=== PATIENT | female | born 1950 | race Caucasian/White ===

== ENCOUNTER 2017-10-14 09:38 | Emergency (ER) | payer OTHER ==
[~2017-10-14] VITALS: Ht 160 cm; Wt 78.0 kg
[2017-10-14 09:40] VITALS: BP 156/84
[2017-10-14] MEDS: KETOROLAC 60 MG/2 ML VIAL IM ONE (10:02)
[2017-10-14 10:25] VITALS: BP 167/85
== END 2017-10-14 10:25 | disposition home or self-care (01) ==
LOC: MED 09:38
DX: R07.89 Other chest pain (principal)
CPT/HCPCS: 96372; 99283; J1885

== ENCOUNTER 2017-10-24 17:58 | Emergency (ER) | payer OTHER ==
[~2017-10-24] VITALS: Ht 160 cm; Wt 81.6 kg
[2017-10-24 18:00] VITALS: BP 173/77
--- NOTE | 2017-10-24 18:10 | NUR ---
PATIENT PRESENTS TO ED WITH EPIGASTRIC PAIN . PT STATES SHE WAS HERE LAST WEEK WITH BACK PAIN BUT NOW SHE HAS EPIGASTRIC PAIN THAT RADIATES UP TOWARDS THROAT. DENIES N/V/D; SKIN IS PINK/WARM/DRY; AAOX4 WITH EVEN AND STEADY GAIT; LUNGS CLEAR BL; HR EVEN AND REGULAR; PT DENIES ANY FEVER, CP, SOB, OR COUGH AT THIS TIME; PATIENT STATES PAIN OF 7/10 AT THIS TIME; VSS; PATIENT POSITIONED FOR COMFORT; HOB ELEVATED; BEDRAILS UP X1; BED DOWN. ER MD MADE AWARE OF PT STATUS.
[2017-10-24] MEDS ORDERED: MORPHINE SULFATE 4 MG/ML SYR IVP ONE (18:15)
[2017-10-24] MEDS ORDERED: NACL 0.9% 1,000 ML IV ONE (18:15)
--- NOTE | 2017-10-24 18:23 | NUR ---
PT TAKEN OFF THE UNIT TO CT BY PILE DRIVER OPERATOR GAVINO
--- NOTE | 2017-10-24 18:36 | NUR ---
RETURNED FROM RADIOLOGY VIA
--- NOTE | 2017-10-24 19:05 | NUR ---
RE[facility]
--- NOTE | 2017-10-24 19:10 | NUR ---
DAUGHTER AT BEDSIDE
[2017-10-24 19:14] LABS: BASOPHILS # (AUTO) 0.1 K/uL (0.00-0.22); BASOPHILS % (AUTO) 0.7 % (0.0-2.0); EOSINOPHILS # (AUTO) 0.1 K/uL (0-0.4); EOSINOPHILS % (AUTO) 1.7 % (0.0-4.0); HEMATOCRIT 37.2 % (36-48); HEMOGLOBIN 12.3 g/dL (12.0-16.0); LYMPHOCYTES # (AUTO) 1.9 K/uL (2.5-16.5); MEAN CORPUSCULAR HEMOGLOBIN 32 pg (27-31); MEAN CORPUSCULAR HGB CONC 33 g/dL (33-37); MEAN CORPUSCULAR VOLUME 97.6 fL (80-94); MONOCYTES # (AUTO) 0.6 K/uL (0.8-1.0); MONOCYTES % (AUTO) 8.2 % (1.7-9.3); NEUTROPHILS # (AUTO) 4.9 K/uL (1.8-7.7); NEUTROPHILS % (AUTO) 64.4 % (42.2-75.2); PLATELET COUNT (AUTO) 216 K/uL (140-450); RED BLOOD CELL COUNT(AUTO) 3.81 MIL/uL (4.20-5.40); RED CELL DISTRIBUTION WIDTH 13.2 % (11.6-13.7); WHITE BLOOD COUNT (AUTO) 7.6 K/uL (4.8-10.8)
[2017-10-24 19:30] LABS: ANION GAP 10.9 (8-16); CARBON DIOXIDE 27.7 mmol/L (21-32); CREATININE 0.7 mg/dL (0.6-1.3); POTASSIUM 3.6 mmol/L (3.5-5.1)
[2017-10-24 19:36] LABS: ALBUMIN 3.2 g/dL (3.4-5.0); TOTAL BILIRUBIN 0.1 mg/dL (0.0-1.0)
--- NOTE | 2017-10-24 20:00 | NUR ---
FLUIDS RESTATRTED, IV PATENT, NO S/S OF INFILTRATION.
[2017-10-24 20:15] VITALS: BP 152/76
--- NOTE | 2017-10-24 20:15 | NUR ---
Patient discharged with v/s stable. Written and verbal after care instructions given and explained. Patient alert, oriented and verbalized understanding of instructions. Ambulatory with steady gait. All questions addressed prior to discharge. ID band removed. Patient advised to follow up with PMD. Rx of MYLANTA [id number] given. Patient educated on indication of medication including possible reaction and side effects. Opportunity to ask questions provided and answered.
== END 2017-10-24 20:15 | disposition home or self-care (01) ==
LOC: MED 17:58
DX: R07.89 Other chest pain (principal); R10.13 Epigastric pain
CPT/HCPCS: 36415; 71045; 74176; 80053; 83690; 84484; 85025; 96361; 96374; 99285; J2270; J7030; 93005; 99284

== ENCOUNTER 2018-06-11 17:15 | Inpatient (IN) | payer OTHER ==
[~2018-06-11] VITALS: Ht 160 cm; Wt 77.6 kg
[2018-06-11 17:33] VITALS: BP 137/89
--- NOTE | 2018-06-11 17:35 | NUR ---
67 Y/O F ACCOMPANIED BY DAUGHTER W/C/O CONSTANT LEFT SIDED BURNING CHEST WALL PAIN RADIATING UNDER LEFT BREAST AND OVER LEFT SCAPULA----NAUSEA AND HEADACHE ASSOCIATED X 1500HRS TODAY. PT STATES SEEN 10/14/2017 AND 10/24/2017 SAME SYMPTOMS. DENIES INJURY, NO RASH NOTED--DENIES ANY AGGRAVATING OR RELIEVING FACTORS. SKIN IS INTACT, PINK/WARM/DRY; AAOX4, PERRL, WITH EVEN AND STEADY GAIT; LUNGS CLEAR BL, BREATHING UNLABORED; HR EVEN AND REGULAR, BL PERIPHERAL PULSES PRESENT; BS ACTIVE X4, NO TENDERNESS TO PALPATION, NO HEPATOSPLENOMEGALLY PALPATED, RESONANT TO PERCUSSION; PT DENIES ANY FEVER, CP, SOB, OR COUGH AT THIS TIME; PT STATES 8/10 PAIN AT THIS TIME; VSS; PATIENT POSITIONED FOR COMFORT; HOB ELEVATED; BEDRAILS UP X2; BED DOWN. HX----HTN, OSTEOPOROSIS RX----?
[2018-06-11] MEDS ORDERED: ASPIRIN 81 MG TAB.CHEW PO ONE (17:45)
[2018-06-11] MEDS ORDERED: KETOROLAC 30 MG/ML VIAL IVP ONE (17:45)
--- NOTE | 2018-06-11 18:00 | NUR ---
PT RESTING IN BED WITH DAUGHTER AT THE BEDSIDE. NO S/S OF DISTRESS NOTED.
[2018-06-11 18:06] LABS: BASOPHILS # (AUTO) 0.1 K/uL (0.00-0.22); BASOPHILS % (AUTO) 0.8 % (0.0-2.0); EOSINOPHILS # (AUTO) 0.2 K/uL (0-0.4); HEMATOCRIT 38.3 % (36-48); HEMOGLOBIN 12.5 g/dL (12.0-16.0); LYMPHOCYTES # (AUTO) 2.2 K/uL (2.5-16.5); MEAN CORPUSCULAR HEMOGLOBIN 32 pg (27-31); MEAN CORPUSCULAR HGB CONC 33 g/dL (33-37); MEAN CORPUSCULAR VOLUME 97.3 fL (80-94); MONOCYTES # (AUTO) 0.7 K/uL (0.8-1.0); MONOCYTES % (AUTO) 8.4 % (1.7-9.3); NEUTROPHILS % (AUTO) 61.8 % (42.2-75.2); PLATELET COUNT (AUTO) 231 K/uL (140-450); RED BLOOD CELL COUNT(AUTO) 3.93 MIL/uL (4.20-5.40)
[2018-06-11 18:49] LABS: ALBUMIN 3.7 g/dL (3.4-5.0); ANION GAP 10.7 (8-16); CARBON DIOXIDE 29.6 mmol/L (21-32); CREATININE 0.8 mg/dL (0.6-1.3); POTASSIUM 3.3 mmol/L (3.5-5.1); TOTAL BILIRUBIN 0.2 mg/dL (0.0-1.0)
[2018-06-11 18:50] LABS: PROTHROMBIN TIME 9.3 secs (10.8-13.4)
[2018-06-11] MEDS ORDERED: DICYCLOMINE HCL LIQUID 20 MG, ALUMINUM HYD/MAG/SIMETHICONE 30 ML, LIDOCAINE VISCOUS 2% ... PO ONE ×3 (19:45)
[2018-06-11] MEDS ORDERED: ACETAMINOPHEN 325 MG TAB PO PRN (20:20)
[2018-06-11] MEDS ORDERED: ONDANSETRON 4 MG/2 ML VIAL IVP PRN (20:20)
[2018-06-11] MEDS ORDERED: HYDROcodone/APAP 7.5/325 MG 1 TAB PO PRN (20:20)
[2018-06-11] MEDS ORDERED: POTASSIUM CHLORIDE 10 MEQ TABER PO ONE ×2 (20:20→22:57)
[2018-06-11] MEDS ORDERED: NITROGLYCERIN 0.4 MG TAB SL PRN (20:20)
--- NOTE | 2018-06-11 20:30 | NUR ---
PT AMBULATED TO BATHROOM AT THIS TIME. NO DISTRESS NOTED. PT STATES 0/10 PAIN.
--- NOTE | 2018-06-11 21:05 | NUR ---
RECEIVED FROM [place] MAORI BRENDA MENDOSA AWAKE AND ALERT. ABLE TO VERBALIZE IN [place] AND [place] ACCOMPANIED BY DAUGHTER. NO SOB. DENIES ANY CHEST PAIN AT THIS TIME. MEDICATED IN ER FOR HER CHEST PAIN DX. PT. IVF SITE TO [facility] #18. CALL LIGHT WITH IN REACH AND CARE PLANS FOR THE NIGHT DISCUSSED WITH THEM. SKIN INTACT. ACCOMPANIED BY DAUGHTER NEGRITO DOOLEY WHO SPEAKS [place].
--- NOTE | 2018-06-11 21:10 | NUR ---
Patient will be admitted to care of [facility]. Admited to TELE. Will go to room 120B. Belongings list completed. Report to AMANDA READ.
--- NOTE | 2018-06-11 21:30 | NUR ---
PER PT. SHE CAN WALK WELL WITHOUT ASSIST. INDEPENDENT. TURNS SELF WELL. ABLE TO EXPRESS SIMPLE NEEDS IN [place].
[2018-06-11 21:48] LABS: APPEARANCE,URINE CLEAR (CLEAR); BILIRUBIN,URINE NEGATIVE (NEGATIVE); BLOOD, URINE 1+ (NEGATIVE); COLOR,URINE YELLOW (YELLOW); LEUKOCYTE ESTERASE ,URINE NEGATIVE (NEGATIVE); NITRITE, URINE NEGATIVE (NEGATIVE); UGLUCOSE NEGATIVE (NEGATIVE)
[2018-06-11 21:51] LABS: RBC,URINE 3-10 (FEW) /HPF (0-5); WBC,URINE 0-5 (RARE) /HPF (0-5)
[2018-06-11] MEDS ORDERED: ASPI81CT89 PO (22:17)
[2018-06-11] MEDS ORDERED: ORE25 PO (22:17)
[2018-06-11] MEDS ORDERED: CALC-53 PO (22:17)
[2018-06-11] MEDS ORDERED: NAPR-54 PO (22:17)
[2018-06-11 22:25] LABS: FREE T4 (FREE THYROXINE) 1.1 ng/dL (0.76-1.46); PHOSPHORUS 3.3 mg/dL (2.5-4.9); THYROID STIMULATING HORMONE 2.37 uIU/mL (0.34-3.74)
[2018-06-11 22:37] VITALS: BP 133/85
[2018-06-11] MEDS: DOCUSATE SODIUM 100 MG GELCAP PO SCH (22:51)
[2018-06-11] MEDS: ATORVASTATIN 20 MG TAB PO SCH (22:52)
[2018-06-11] MEDS: ZOLPIDEM 5 MG TAB PO PRN (22:53)
[2018-06-11] MEDS: METOPROLOL 25 MG TAB PO SCH (22:53)
[2018-06-11] MEDS: NACL 0.9% 1,000 ML IV SCH (23:00)
--- NOTE | 2018-06-11 23:23 | NUR ---
ALL P.O. MEDICATIONS ORDERED TOLERATED WELL. NO COMPLAINTS DONE. SWALLOWED HER PILLS WELL. PT. WENT RESTROOM TO URINATE INDEPENDENTLY. FAMILY MEMBERS LEFT FOR HOME. RE-ORIENTED TO CALL LIGHT USE AND FOR ANY HELP SHE NEEDS. TELEMETRY MONITORING.
--- NOTE | 2018-06-12 01:12 | NUR ---
SLEEPING AT THIS TIE. CALL LIGHT WITH IN REACH. IVF NS INFUSING WELL AT 70 ML/H. IVF SITE PATENT AND NO INFILTRATION. TELEMETRY MONITORING.
[2018-06-12 01:24] VITALS: BP 143/65
--- NOTE | 2018-06-12 01:25 | NUR ---
PT. AWAKE AND WENT TO RESTROOM TO URINATE. INDEPENDENT. DENIES DOLOR AT THIS TIME. ENCOURAGED TO CALL FOR ANY HELP SHE MAY NEED OR IF IN PAIN.
--- NOTE | 2018-06-12 03:00 | NUR ---
SLEEPING WELL. NO SOB. NO RESTLESSNESS. TELEMETRY MONITORING. CALL LIGHT WITH IN REACH.
[2018-06-12 04:56] VITALS: BP 109/60
--- NOTE | 2018-06-12 06:30 | NUR ---
CELINA OF CT SCAN IN HERE TO TAKE PT. TO THEIR UNIT FOR CT SCAN ABDOMEN WITH OUT CONTRAST. AWAKE AND ALERT.
--- NOTE | 2018-06-12 07:29 | NUR ---
BACK FROM CT SCAN ABD. AWAKE AND ALERT. ENDORSED TO THE NEXT RN FOR CONTINUITY OF CARE.
--- NOTE | 2018-06-12 07:30 | NUR ---
REPORT RECEIVED FROM NIGHT NURSE. PT A/O ABLE TO COMMUNICATE NEEDS. DENIES CHEST PAIN, SOB OR DISCOMFORT. NO S/S OF ACUTE DISTRESS NOTED AT THIS TIME. CALL LIGHT, PERSONAL ITEMS WITHIN REACH, SAFETY MEASURES IN PLACE, WILL CONTINUE TO MONITOR.
[2018-06-12 08:00] VITALS: BP 147/55
[2018-06-12 08:16] LABS: BASOPHILS # (AUTO) 0.1 K/uL (0.00-0.22); BASOPHILS % (AUTO) 0.9 % (0.0-2.0); EOSINOPHILS # (AUTO) 0.2 K/uL (0-0.4); EOSINOPHILS % (AUTO) 2.2 % (0.0-4.0); HEMOGLOBIN 12.8 g/dL (12.0-16.0); LYMPHOCYTES # (AUTO) 2.2 K/uL (2.5-16.5); LYMPHOCYTES % (AUTO) 31.5 % (20.5-51.1); MEAN CORPUSCULAR HEMOGLOBIN 32 pg (27-31); MEAN CORPUSCULAR HGB CONC 33 g/dL (33-37); MEAN CORPUSCULAR VOLUME 97.2 fL (80-94); MONOCYTES # (AUTO) 0.6 K/uL (0.8-1.0); MONOCYTES % (AUTO) 8.6 % (1.7-9.3); NEUTROPHILS # (AUTO) 3.9 K/uL (1.8-7.7); NEUTROPHILS % (AUTO) 56.8 % (42.2-75.2); PLATELET COUNT (AUTO) 239 K/uL (140-450); RED BLOOD CELL COUNT(AUTO) 4.01 MIL/uL (4.20-5.40); RED CELL DISTRIBUTION WIDTH 13.4 % (11.6-13.7); WHITE BLOOD COUNT (AUTO) 6.9 K/uL (4.8-10.8)
--- NOTE | 2018-06-12 08:44 | NUR ---
PATIENT HAS BEEN SCREENED AND CATEGORIZED MODERATE NUTRITION RISK. PATIENT WILL BE SEEN WITHIN 3-5 DAYS OF ADMISSION. 06/14/18 06/16/[address]
[2018-06-12 09:07] LABS: ANION GAP 13.7 (8-16); CARBON DIOXIDE 26.5 mmol/L (21-32); CREATININE 0.8 mg/dL (0.6-1.3); POTASSIUM 4.2 mmol/L (3.5-5.1)
[2018-06-12] MEDS: DOCUSATE SODIUM 100 MG GELCAP PO SCH ×2 (09:08→21:22)
[2018-06-12] MEDS: ASPIRIN 81 MG TAB.CHEW PO SCH (09:08)
[2018-06-12] MEDS: METOPROLOL 25 MG TAB PO SCH ×2 (09:08→21:22)
[2018-06-12] MEDS: LISINOPRIL 5 MG TAB PO SCH (09:08)
[2018-06-12 09:28] LABS: MAGNESIUM 2.1 mg/dL (1.8-2.4); PHOSPHORUS 2.9 mg/dL (2.5-4.9)
[2018-06-12 09:47] LABS: CHOL/HDL RATIO 3.6 (1-4.5)
--- NOTE | 2018-06-12 10:30 | NUR ---
PT AWAKE A/O ABLE TO COMMUNICATE NEEDS. DENIES CHEST PAIN, SOB OR DISCOMFORT. AMBULATORY AD BERYL. NO S/S OF ACUTE DISTRESS NOTED AT THIS TIME. CALL LIGHT, PERSONAL ITEMS WITHIN REACH, SAFETY MEASURES IN PLACE, WILL CONTINUE TO MONITOR.
[2018-06-12 12:00] VITALS: BP 138/64
[2018-06-12] MEDS: NACL 0.9% 1,000 ML IV SCH (12:56)
--- NOTE | 2018-06-12 13:29 | NUR ---
PT AWAKE A/O ABLE TO COMMUNICATE NEEDS. FAMILY AT BEDSIDE. PT DENIES CHEST PAIN, SOB OR DISCOMFORT. OOB AD BERYL. NO S/S OF ACUTE DISTRESS NOTED AT THIS TIME. CALL LIGHT, PERSONAL ITEMS WITHIN REACH, SAFETY MEASURES IN PLACE, WILL CONTINUE TO MONITOR.
[2018-06-12 16:00] VITALS: BP 112/50
--- NOTE | 2018-06-12 18:34 | NUR ---
PT AWAKE A/O ABLE TO COMMUNICATE NEEDS. COMFORTABLE EATING DINNER. FAMILY AT BEDSIDE. PT DENIES CHEST PAIN, SOB OR DISCOMFORT. NO S/S OF ACUTE DISTRESS NOTED AT THIS TIME. CALL LIGHT, PERSONAL ITEMS WITHIN REACH, SAFETY MEASURES IN PLACE, WILL CONTINUE TO MONITOR.
--- NOTE | 2018-06-12 19:22 | NUR ---
PT AWAKE A/O ABLE TO COMMUNICATE NEEDS. PT DENIES CHEST PAIN, SOB OR DISCOMFORT. NO S/S OF ACUTE DISTRESS NOTED AT THIS TIME. CALL LIGHT, PERSONAL ITEMS WITHIN REACH, SAFETY MEASURES IN PLACE. REPORT ENDORSED TO NURSE STEPHENS.
--- NOTE | 2018-06-12 19:24 | NUR ---
RECEIVED BEDSIDE REPORT FROM AM SHIFT NURSE. PT A/O ABLE TO COMMUNICATE NEEDS. DENIES CHEST PAIN, SOB OR DISCOMFORT. NO S/S OF ACUTE DISTRESS NOTED AT THIS TIME. CALL LIGHT, PERSONAL ITEMS WITHIN REACH, SAFETY MEASURES IN PLACE, WILL CONTINUE TO MONITOR.
[2018-06-12 20:00] VITALS: BP 112/50
--- NOTE | 2018-06-12 21:15 | NUR ---
PT ABLE TO TOLERATE ALL MEDS, NO COMPLAINTS OF CHEST PAIN.
[2018-06-12] MEDS: ATORVASTATIN 20 MG TAB PO SCH (21:22)
[2018-06-12] MEDS: ZOLPIDEM 5 MG TAB PO PRN (21:24)
--- NOTE | 2018-06-12 21:24 | NUR ---
PT C/O OF INABILITY OF SLEEP. AMBIEN GIVEN ORDERED.
[2018-06-13] VITALS: BP 120/60
[2018-06-13] MEDS: NACL 0.9% 1,000 ML IV SCH (03:32)
[2018-06-13 04:00] VITALS: BP 120/50
--- NOTE | 2018-06-13 04:18 | NUR ---
PT SLEEPING. PT IN STABLE CONDITION, NO COMPLAINTS OF PAIN AT THIS TIME. WILL CONTINUE TO MONITOR
--- NOTE | 2018-06-13 07:24 | NUR ---
PT STILL SLEEPING IN STABLE CONDITION. NO COMPLAINTS OF CHEST PAIN. WILL ENDORSE TO NEXT SHIFT
--- NOTE | 2018-06-13 07:30 | NUR ---
REPORT RECEIVED FROM NIGHT NURSE ANGELO. PT SLEEPING, EASILY AROUSABLE TO VERBAL STIMULI. A/O ABLE TO COMMUNICATE NEEDS. DENIES CHEST PAIN, SOB OR DISCOMFORT. NO S/S OF ACUTE DISTRESS NOTED AT THIS TIME. CALL LIGHT, PERSONAL ITEMS WITHIN REACH, SAFETY MEASURES IN PLACE, WILL CONTINUE TO MONITOR.
[2018-06-13 08:09] VITALS: BP 127/50
[2018-06-13] MEDS: ASPIRIN 81 MG TAB.CHEW PO SCH (09:34)
[2018-06-13] MEDS: DOCUSATE SODIUM 100 MG GELCAP PO SCH (09:34)
[2018-06-13] MEDS: LISINOPRIL 5 MG TAB PO SCH (09:35)
[2018-06-13] MEDS: METOPROLOL 25 MG TAB PO SCH (09:35)
--- NOTE | 2018-06-13 10:30 | NUR ---
PT A/O ABLE TO COMMUNICATE NEEDS. VISITOR AT BEDSIDE. PT DENIES CHEST PAIN, SOB OR DISCOMFORT. NO S/S OF ACUTE DISTRESS NOTED AT THIS TIME. CALL LIGHT, PERSONAL ITEMS WITHIN REACH, SAFETY MEASURES IN PLACE, WILL CONTINUE TO MONITOR.
[2018-06-13 12:00] VITALS: BP 138/48
[2018-06-13 12:55] VITALS: BP 138/48
[2018-06-13 12:56] LABS: BASOPHILS # (AUTO) 0.1 K/uL (0.00-0.22); BASOPHILS % (AUTO) 0.7 % (0.0-2.0); EOSINOPHILS # (AUTO) 0.1 K/uL (0-0.4); EOSINOPHILS % (AUTO) 1.6 % (0.0-4.0); HEMATOCRIT 38.4 % (36-48); HEMOGLOBIN 12.7 g/dL (12.0-16.0); LYMPHOCYTES # (AUTO) 2.3 K/uL (2.5-16.5); LYMPHOCYTES % (AUTO) 27.9 % (20.5-51.1); MEAN CORPUSCULAR HEMOGLOBIN 32 pg (27-31); MEAN CORPUSCULAR HGB CONC 33 g/dL (33-37); MONOCYTES # (AUTO) 0.7 K/uL (0.8-1.0); MONOCYTES % (AUTO) 8.7 % (1.7-9.3); NEUTROPHILS % (AUTO) 61.1 % (42.2-75.2); PLATELET COUNT (AUTO) 223 K/uL (140-450); RED BLOOD CELL COUNT(AUTO) 3.95 MIL/uL (4.20-5.40); RED CELL DISTRIBUTION WIDTH 13.2 % (11.6-13.7); WHITE BLOOD COUNT (AUTO) 8.2 K/uL (4.8-10.8)
[2018-06-13 13:10] LABS: MAGNESIUM 2.2 mg/dL (1.8-2.4)
[2018-06-13 13:11] LABS: ANION GAP 13.8 (8-16); CARBON DIOXIDE 25.1 mmol/L (21-32); CREATININE 0.6 mg/dL (0.6-1.3); POTASSIUM 3.9 mmol/L (3.5-5.1)
--- NOTE | 2018-06-13 13:57 | NUR ---
PT AWAKE ALERT ORIENTED AMBULATORY, ABLE TO COMMUNICATE NEEDS. PT DISCHARGED TO HOME VIA PERSONAL TRANSPORT WITH DAUGHTER. PT AND FAMILY PROVIDED DC INSTRUCTIONS AND EDUCATION, VERBALIZED UNDERSTANDING. IV ACCESS REMOVED, TOLERATED WELL. CATHETER INTACT, NO S/S INFILTRATION, BANDAGE APPLIED, NO ACTIVE BLEEDING NOTED. PT DISCHARGED W ALL BELONGINGS, ALL QUESTIONS ANSWERED.. DENIES CP, DISCOMFORT, N/V, SOB. SKIN INTACT. NO S/S OF ACUTE DISTRESS NOTED.
== END 2018-06-13 13:57 | disposition home or self-care (01) | DRG 206 ==
LOC: MED 17:15 → MTU 20:34
PROVIDERS: ADMIT General Practice; ATTEND General Practice
DX: M94.0 Chondrocostal junction syndrome [Tietze] (principal); E87.6 Hypokalemia; I10 Essential (primary) hypertension; M81.0 Age-related osteoporosis without current pathological fracture; E66.9 Obesity, unspecified; Z68.30 Body mass index [BMI] 30.0-30.9, adult; Z71.3 Dietary counseling and surveillance; Z79.82 Long term (current) use of aspirin; Z79.899 Other long term (current) drug therapy; Z87.891 Personal history of nicotine dependence
CPT/HCPCS: 36415; 71045; 80048; 80053; 81001; 82150; 83036; 83690; 83735; 83880; 84100; 84439; 84443; 84484; 85025; 85610; 85730; 87081; 93005; 96374; 99285; J1885; J7030; Q0092

== ENCOUNTER 2021-02-14 15:21 | Emergency (ER) | payer OTHER ==
[~2021-02-14] VITALS: Ht 162.6 cm; Wt 73.0 kg
[~2021-02-14 15:21] MED LIST: ASPI-1822 PO; CALC-53 PO; HYDR-4004 PO; NAPR-54 PO
[2021-02-14 15:42] VITALS: BP 187/80
--- NOTE | 2021-02-14 17:00 | NUR ---
70 YEAR OLD FEMALE COMPLAINS OF BILATERAL LEG SWELLING X 2 WEEKS. PT STATES SHE HAS KNEE PAIN AND THAT LEFT LEG HAS PAIN FROM HIP THROUHGOUT LEG. PT AOX4, BREATHING EVEN AND UNLABORED, SKIN WARM AND DRY. BED IN LOWEST POSITION, LOCKED, BED RAIL UPX1. PMH - HTN ALLERGIES - NKA
--- NOTE | 2021-02-14 17:01 | NUR ---
Pt wheelchair assisted to bed 01.
[2021-02-14 17:11] LABS: HEMATOCRIT 33.7 % (36-48); HEMOGLOBIN 11.5 g/dL (12.0-16.0); MEAN CORPUSCULAR HEMOGLOBIN 34 pg (27-31); MEAN CORPUSCULAR HGB CONC 34 g/dL (33-37); MEAN CORPUSCULAR VOLUME 99.2 fL (80-94); PLATELET COUNT (AUTO) 312 K/uL (140-450); RED CELL DISTRIBUTION WIDTH 14.4 % (11.6-13.7); WHITE BLOOD COUNT (AUTO) 10.3 K/uL (4.8-10.8)
[2021-02-14 17:28] LABS: PROTHROMBIN TIME 8.7 secs (10.8-13.4)
[2021-02-14 17:35] LABS: ALBUMIN 3.1 g/dL (3.4-5.0); ANION GAP 9.7 (8-16); ASPARTATE AMINOTRANSFERASE 24 U/L (15-37); CHLORIDE 103 mmol/L (98-107); CREATININE 0.8 mg/dL (0.6-1.3); GLUCOSE 102 mg/dL (74-106); POTASSIUM 3.7 mmol/L (3.5-5.1); SODIUM SERUM 140 mmol/L (136-145); TOTAL BILIRUBIN 0.2 mg/dL (0.0-1.0); UREA NITROGEN, BLOOD 23 mg/dL (7-18)
[2021-02-14] MEDS ORDERED: ACETAMINOPHEN 650 MG/20.3 ML UDC PO ONE (18:30)
--- NOTE | 2021-02-14 19:04 | NUR ---
STOOL SAMPLE SENT TO LAB
--- NOTE | 2021-02-14 19:26 | NUR ---
REPORT GIVEN TO SISI READ, TRANSFER OF CARE AT THIS TIME
--- NOTE | 2021-02-14 19:28 | NUR ---
RECEIVED REPORT FROM GIANCARLO READ, FOR CONTINUITY OF CARE
[2021-02-14 20:18] LABS: EOSINOPHILS % (MANUAL) 1 % (0-4); LYMPHOCYTES % (MANUAL) 21 % (20-46); MONOCYTES % (MANUAL) 3 % (5-12)
[2021-02-14] MEDS ORDERED: METH-1681 PO (20:18)
[2021-02-14 20:30] VITALS: BP 187/80
--- NOTE | 2021-02-14 20:30 | NUR ---
Patient discharged with v/s stable. Written and verbal after care instructions given and explained. Patient verbalized understanding. Ambulatory with steady gait. All questions addressed prior to discharge. Advised to follow up with PMD.
== END 2021-02-14 20:30 | disposition home or self-care (01) ==
LOC: MED 15:21
DX: M13.862 Other specified arthritis, left knee (principal); M79.89 Other specified soft tissue disorders; R10.9 Unspecified abdominal pain; I10 Essential (primary) hypertension; Z79.899 Other long term (current) drug therapy; Z79.82 Long term (current) use of aspirin; Z98.890 Other specified postprocedural states
CPT/HCPCS: 36415; 71045; 73562; 80053; 83880; 84484; 85025; 85379; 85610; 85730; 93005; 93970; 99285